=== PATIENT | male | born 1930 | race Caucasian/White ===

== ENCOUNTER → 2018-02-01 | Outpatient (CLI) | payer MEDICARE, OTHER ==
[~2018-02-01] MED LIST: CHOL200024 PO; GLUC1CAP13 PO; MULT-717 PO; OMEG1CAP39 PO; TRIA10.8 NS; UBID1CAP43 PO; VITA400C43 PO
[2018-02-01 10:56] LABS: CULTURE INDICATED? NO; MICROSCOPIC NOT IND
[2018-02-01 10:57] LABS: BASOPHILS # (AUTO) 0.04 x10^3/uL (0-0.1); BASOPHILS % (AUTO) 1 % (0-1); EOSINOPHILS # (AUTO) 0.31 x10^3/uL (0-0.4); EOSINOPHILS % (AUTO) 6 % (1-7); LYMPHOCYTES # (AUTO) 1.37 x10^3/uL (1-3.4); LYMPHOCYTES % (AUTO) 26 % (22-44); MD NO; MEAN CORPUSCULAR HEMOGLOBIN 33.8 pg (27.5-34.5); MEAN CORPUSCULAR VOLUME 99.5 fL (81-97); MEAN PLATELET VOLUME 8.1 fL (7.4-10.4); MONOCYTES # (AUTO) 0.42 x10^3/uL (0.2-0.8); MONOCYTES % (AUTO) 8 % (2-9); NEUTROPHILS # (AUTO) 3.18 x10^3/uL (1.8-6.8); NEUTROPHILS % (AUTO) 60 % (42-75); PLATELET COUNT 224 x10^3/uL (130-400); RED BLOOD COUNT 4.74 x10^6/uL (4.38-5.82)
[2018-02-01 11:05] LABS: ANION GAP 4 mmol/L (5-15); CALCIUM 8.7 mg/dL (8.5-10.1); CHLORIDE 108 mmol/L (98-107); CREATININE 1.13 mg/dL (0.7-1.3)
== END | disposition home or self-care (01) ==
LOC: STAR 09:43
PROVIDERS: ATTEND Orthopaedic Surgery
DX: M17.11 Unilateral primary osteoarthritis, right knee (principal)
CPT/HCPCS: 36415; 80048; 81003; 85025; 87081; 93005

== ENCOUNTER 2018-02-05 06:34 | Inpatient (IN) | payer MEDICARE, OTHER ==
[~2018-02-05] VITALS: Ht 182.9 cm; Wt 84.8 kg
[2018-02-05] MEDS ORDERED: GABAPENTIN 300 MG CAPSULE PO ONE (07:30)
[2018-02-05] MEDS ORDERED: ONDANSETRON ODT 8 MG PO ONE (07:30)
[2018-02-05] MEDS ORDERED: ACETAMINOPHEN 500 MG TABLET PO ONE (07:30)
[2018-02-05] MEDS ORDERED: OXYcodone IR 5MG TABLET PO ONE (07:30)
[2018-02-05 07:32] VITALS: BP 141/91
[2018-02-05] MEDS: LACTATED RINGERS 1,000 ML IV SCH ×3 (07:54→13:20)
[2018-02-05] MEDS ORDERED: CEFAZOLIN 1,000 MG ONE ×3 (08:53→12:20)
[2018-02-05] MEDS ORDERED: PHENYLEPHRINE 10 MG/ML ONE ×2 (08:53→11:10)
[2018-02-05] MEDS ORDERED: FENTANYL PF 250 MCG/5ML ONE ×2 (08:53→12:14)
[2018-02-05] MEDS ORDERED: PROPOFOL 10 MG/ML, 20ML ONE (08:53)
[2018-02-05] MEDS ORDERED: SUCCINYLCHOLINE 20 MG/ML, 10ML ONE (08:53)
[2018-02-05] MEDS ORDERED: EPHEDRINE 50 MG/ML, 1ML ONE (08:54)
[2018-02-05] MEDS ORDERED: TRANEXAMIC ACID 100 MG/ML, 10ML ONE (09:03)
[2018-02-05] MEDS ORDERED: VANCOMYCIN 1,000 MG ONE (09:03)
[2018-02-05] MEDS ORDERED: EPINEPHRINE 1 MG/ML, 1ML ONE (09:03)
[2018-02-05] MEDS ORDERED: SODIUM CHLORIDE 0.9% 100 ML ONE (09:03)
[2018-02-05] MEDS ORDERED: KETOROLAC 60 MG/2 ML ONE (09:03)
[2018-02-05] MEDS ORDERED: ROPIvacaine/PF 0.2%, 20 ML ONE (09:03)
[2018-02-05] MEDS ORDERED: VANCOMYCIN PER PHARMACY MC STA (09:16)
[2018-02-05] MEDS ORDERED: VANCOMYCIN 1,500 MG in SODIUM CHLORIDE 0.9% 250 ML IV ONE (10:00)
[2018-02-05] MEDS ORDERED: FENTANYL PF 100 MCG/2ML IV PRN (11:00)
[2018-02-05] MEDS ORDERED: HYDROmorphone 1 MG/ML, 1ML IV PRN ×2 (11:00→11:30)
[2018-02-05] MEDS ORDERED: MEPERIDINE/PF 25MG/0.5ML IVPush PRN (11:00)
[2018-02-05] MEDS ORDERED: PROMETHAZINE 25 MG/ML, 1ML IV PRN (11:00)
[2018-02-05] MEDS ORDERED: OXYcodone 5 MG/5 ML ORAL.SOL UDC PO PRN (11:00)
[2018-02-05] MEDS ORDERED: GLYCOPYRROLATE 0.2MG/1ML, 5ML ONE (11:08)
[2018-02-05] MEDS ORDERED: ONDANSETRON 2MG/ML, 2ML ONE (11:09)
[2018-02-05] MEDS ORDERED: ONDANSETRON 4 MG TABLET PO PRN (11:30)
[2018-02-05] MEDS ORDERED: MAGNESIUM HYDROXIDE 8%, 30ML UDC PO PRN (11:30)
[2018-02-05] MEDS ORDERED: ZOLPIDEM 5MG TABLET PO PRN (11:30)
[2018-02-05] MEDS: D5%-0.45% NACL 1,000 ML IV SCH ×2 (11:30→20:50)
[2018-02-05] MEDS ORDERED: ALUMINUM/MAG/SIMETHICONE 30 ML UDC PO PRN (11:30)
[2018-02-05] MEDS ORDERED: TRANEXAMIC ACID 1,000 MG in SODIUM CHLORIDE 0.9% 100 ML IVPB ONE (11:30)
[2018-02-05] MEDS ORDERED: OXYcodone IR 5MG TABLET PO PRN (11:30)
[2018-02-05] MEDS ORDERED: DIPHENHYDRAMINE 25 MG CAPSULE PO PRN (11:30)
[2018-02-05] MEDS ORDERED: BISACODYL 10 MG SUPP PR PRN (11:30)
[2018-02-05] MEDS ORDERED: ONDANSETRON 2MG/ML, 2ML IV PRN (11:30)
[2018-02-05] MEDS ORDERED: DIAZEPAM 5 MG TABLET PO PRN (11:30)
[2018-02-05] MEDS: TAMSULOSIN 0.4 MG CAP.ER.24H PO SCH (11:30)
[2018-02-05] MEDS ORDERED: PROMETHAZINE 12.5 MG SUPP PR PRN (11:30)
[2018-02-05] MEDS ORDERED: PROMETHAZINE 25 MG/ML, 1ML IM PRN (11:30)
[2018-02-05] MEDS ORDERED: SENNA/DOCUSATE TABLET PO PRN (11:30)
[2018-02-05] MEDS: ACETAMINOPHEN 650 MG/20.3 ML UDC PO SCH ×2 (11:30→19:43)
[2018-02-05 13:17] VITALS: BP 131/81
[2018-02-05] MEDS: CEFAZOLIN PMX 1GM/50ML 50 ML IVPB SCH ×2 (16:43→23:58)
[2018-02-05] MEDS: ASPIRIN 81 MG TABLET EC PO SCH (18:25)
[2018-02-05] MEDS: DOCUSATE 100 MG CAPSULE PO SCH (19:43)
[2018-02-05 19:57] VITALS: BP 123/69
[2018-02-05] MEDS ORDERED: TAMSULOSIN 0.4 MG CAP.ER.24H PO ONE (20:00)
[2018-02-05] MEDS ORDERED: FLUTICASONE NASAL SPRAY 16GM NAS SCH (21:00)
[2018-02-06 00:09] VITALS: BP 89/49
[2018-02-06] MEDS: ACETAMINOPHEN 650 MG/20.3 ML UDC PO SCH ×2 (03:54→11:24)
[2018-02-06 04:11] VITALS: BP 103/56
[2018-02-06] MEDS: ASPIRIN 81 MG TABLET EC PO SCH (05:38)
[2018-02-06] MEDS ORDERED: DEXAMETHASONE 4 MG/ML, 1ML IVPush SCH (06:00)
[2018-02-06 07:05] VITALS: BP 114/72
[2018-02-06] MEDS: DOCUSATE 100 MG CAPSULE PO SCH (07:21)
[2018-02-06] MEDS: D5%-0.45% NACL 1,000 ML IV SCH (07:21)
[2018-02-06] MEDS: TAMSULOSIN 0.4 MG CAP.ER.24H PO SCH (07:21)
[2018-02-06 12:45] VITALS: BP 97/54
[2018-02-06] MEDS ORDERED: KETOROLAC 30 MG/1 ML IV SCH (17:00)
== END 2018-02-06 16:35 | disposition home or self-care (01) | DRG 470 ==
LOC: OUT 06:34 → ORIP 11:30 → 4NOR 12:50 → DCLOUNGE 02-06 16:28
PROVIDERS: ADMIT Orthopaedic Surgery; ATTEND Orthopaedic Surgery
PROC: 0SRC0J9 Replacement of Right Knee Joint with Synthetic Substitute, Cemented, Open Approach (ICD-10-PCS; principal; 2018-02-05 09:45)
DX: M17.11 Unilateral primary osteoarthritis, right knee (principal); R33.9 Retention of urine, unspecified
CPT/HCPCS: 36415; 85018; 93005; C1713; J0171; J0690; J1100; J1885; J2405; J2704; J2795; J3010; J3370; J3490; Q0162; C1776; J0330; J2370; J7120

== ENCOUNTER 2019-08-13 18:26 | Inpatient (IN) | payer MEDICARE, OTHER ==
[~2019-08-13] VITALS: Ht 182.9 cm; Wt 73.6 kg
--- NOTE | 2019-08-13 19:03 | NUR ---
THIS IS A 88 YO M SENT FORM PRIMARY CARE FOR INFT IN RT KNEE. PT STATES HE WAS RECENTLY ADMITTED AT [facility] FOR PNA TURNED SEPSIS AND THEY BELIEVE THAT IS WHAT CAUSED THE INFT IN HIS KNEE. PT STATES HE IS TO HAVE SX TOMORROW TO HAVE KNEE REPLACED. ORIGINAL RT KNEE REPLACEMENT WAS ABOUT 1.5 YEARS AGO. PT DENIES CHILLS N/V. RESPIRATIONS ARE EVEN AND UNLABORED. NADN. ED PROVIDER AT BEDSIDE FOR EVAL. CALL LIGHT IN REACH. AWAITING ORDERS.
--- NOTE | 2019-08-13 19:24 | NUR ---
PIV STARTED. LABS AND CULTURES DRAWN.
[2019-08-13 19:45] LABS: BASOPHILS # (AUTO) 0.01 x10^3/uL (0-0.1); BASOPHILS % (AUTO) 0 % (0-1); EOSINOPHILS # (AUTO) 0.33 x10^3/uL (0-0.4); EOSINOPHILS % (AUTO) 4 % (1-7); LYMPHOCYTES % (AUTO) 14 % (22-44); MD NO; MEAN CORPUSCULAR HEMOGLOBIN 32.5 pg (27.5-34.5); MEAN CORPUSCULAR HGB CONC 33.8 g/dL (33.2-36.2); MEAN CORPUSCULAR VOLUME 96.2 fL (81-97); MEAN PLATELET VOLUME 7.2 fL (7.4-10.4); MONOCYTES # (AUTO) 0.64 x10^3/uL (0.2-0.8); MONOCYTES % (AUTO) 8 % (2-9); NEUTROPHILS # (AUTO) 6.32 x10^3/uL (1.8-6.8); NEUTROPHILS % (AUTO) 74 % (42-75); PLATELET COUNT 409 x10^3/uL (130-400); RED BLOOD COUNT 3.17 x10^6/uL (4.38-5.82); RED CELL DISTRIBUTION WIDTH 13.7 % (9.4-14.8)
[2019-08-13 19:55] LABS: ALBUMIN 2.7 g/dL (3.4-5.0); ANION GAP 6 mmol/L (5-15); CALCIUM 8.9 mg/dL (8.5-10.1); CHLORIDE 107 mmol/L (98-107)
--- NOTE | 2019-08-13 20:04 | NUR ---
inquiring about pillows for the pt. pillows found and given to pt. no other wants on needs at this time. pt in bed nadn.
--- NOTE | 2019-08-13 21:00 | NUR ---
REPORT GIVEN TO DORIS CHAVARRIA. PT READY TO BE TRANSFERED TO THE FLOOR.
[2019-08-13] MEDS: SODIUM CHLORIDE 0.9% 1,000 ML IV SCH (21:16)
[2019-08-13] MEDS: TRIAMCINOLONE ACETONIDE NAS SCH (21:30)
[2019-08-13] MEDS ORDERED: ONDANSETRON ODT 4 MG PO PRN (21:30)
[2019-08-13] MEDS ORDERED: BISACODYL 10 MG SUPP PR PRN (21:30)
[2019-08-13] MEDS: OXYcodone IR 5MG TABLET PO PRN (22:51)
[2019-08-13 23:01] VITALS: BP 128/71
[2019-08-14 03:01] VITALS: BP 113/70
[2019-08-14 05:57] LABS: BASOPHILS # (AUTO) 0.03 x10^3/uL (0-0.1); BASOPHILS % (AUTO) 1 % (0-1); EOSINOPHILS # (AUTO) 0.44 x10^3/uL (0-0.4); EOSINOPHILS % (AUTO) 9 % (1-7); LYMPHOCYTES # (AUTO) 1.37 x10^3/uL (1-3.4); LYMPHOCYTES % (AUTO) 27 % (22-44); MD NO; MEAN CORPUSCULAR HEMOGLOBIN 32.7 pg (27.5-34.5); MEAN CORPUSCULAR HGB CONC 33.8 g/dL (33.2-36.2); MEAN CORPUSCULAR VOLUME 96.8 fL (81-97); MEAN PLATELET VOLUME 7.1 fL (7.4-10.4); MONOCYTES # (AUTO) 0.55 x10^3/uL (0.2-0.8); MONOCYTES % (AUTO) 11 % (2-9); NEUTROPHILS # (AUTO) 2.71 x10^3/uL (1.8-6.8); NEUTROPHILS % (AUTO) 53 % (42-75); PLATELET COUNT 361 x10^3/uL (130-400); RED BLOOD COUNT 2.77 x10^6/uL (4.38-5.82); RED CELL DISTRIBUTION WIDTH 14.1 % (9.4-14.8)
[2019-08-14 06:04] LABS: ALANINE AMINOTRANSFERASE 18 U/L (12-78); ALBUMIN 2.2 g/dL (3.4-5.0); ANION GAP 6 mmol/L (5-15); CALCIUM 8.1 mg/dL (8.5-10.1); CHLORIDE 110 mmol/L (98-107)
[2019-08-14 06:07] LABS: ALKALINE PHOSPHATASE 60 U/L (45-117); BILIRUBIN,TOTAL 0.5 mg/dL (0.2-1.0); CREATININE 1.33 mg/dL (0.7-1.3); TOTAL PROTEIN 6.2 g/dL (6.4-8.2)
[2019-08-14 07:19] VITALS: BP 110/67
[2019-08-14] MEDS: SODIUM CHLORIDE 0.9% 1,000 ML IV SCH ×2 (09:16→23:56)
[2019-08-14] MEDS: CHOLECALCIFEROL 1,000 UNIT TABLET PO SCH (09:21)
[2019-08-14] MEDS: TEMPLATE NON-FORMULARY MED. (Gluc Su/Msm/Magnesium/Vit C** (Glucosamine Complex-Msm Cap**) HOMEMEDPO SCH (09:22)
[2019-08-14] MEDS: OXYcodone IR 5MG TABLET PO PRN (09:26)
[2019-08-14 14:19] VITALS: BP 105/64
[2019-08-14] MEDS ORDERED: EPINEPHRINE 1 MG/ML, 1ML ONE (14:28)
[2019-08-14] MEDS ORDERED: ROPIvacaine/PF 0.2%, 20 ML ONE (14:28)
[2019-08-14 14:49] LABS: HCT (SEDRATE) 30.2 % (39.2-51.8)
[2019-08-14 15:05] LABS: C-REACTIVE PROTEIN, QUANT 4.6 mg/dL (0.02-0.49)
[2019-08-14] MEDS ORDERED: MIDAZOLAM 1 MG/ML, 2ML ONE (17:17)
[2019-08-14] MEDS ORDERED: FENTANYL PF 250 MCG/5ML ONE (17:18)
[2019-08-14] MEDS ORDERED: TRANEXAMIC ACID 100 MG/ML, 10ML ONE (18:11)
[2019-08-14] MEDS ORDERED: PHENYLEPHRINE 10 MG/ML ONE (18:11)
[2019-08-14] MEDS ORDERED: MIDAZOLAM 1 MG/ML, 2ML IV PRN (19:00)
[2019-08-14] MEDS ORDERED: MEROPENEM 1 GM in SODIUM CHLORIDE 0.9% 100 ML IV ONE (19:00)
[2019-08-14] MEDS ORDERED: METOPROLOL 1 MG/ML, 5ML IV PRN (19:00)
[2019-08-14] MEDS ORDERED: PROMETHAZINE 25 MG/ML, 1ML IV PRN (19:00)
[2019-08-14] MEDS ORDERED: MEPERIDINE/PF 25MG/ML,1ML IVPush PRN (19:00)
[2019-08-14] MEDS ORDERED: OXYcodone 5 MG/5 ML ORAL.SOL UDC PO PRN (19:00)
[2019-08-14] MEDS ORDERED: hydrALAzine 20 MG/ML, 1ML IV PRN (19:00)
[2019-08-14] MEDS ORDERED: ALBUTEROL/IPRATROPIUM 2.5MG/0.5MG, 3 ML NPPB PRN (19:00)
[2019-08-14] MEDS ORDERED: ACETAMINOPHEN 325 MG TABLET PO PRN (19:00)
[2019-08-14] MEDS ORDERED: HYDROmorphone 2 MG/ML, 1ML IVPush PRN (19:00)
[2019-08-14] MEDS ORDERED: VANCOMYCIN 1,000 MG ONE (19:55)
[2019-08-14] MEDS ORDERED: PROPOFOL 10 MG/ML, 20ML ONE (20:48)
[2019-08-14] MEDS ORDERED: DEXAMETHASONE 4 MG/ML, 1ML ONE (20:48)
[2019-08-14] MEDS ORDERED: ROCURONIUM 10MG/ML,5ML ONE (20:48)
[2019-08-14] MEDS ORDERED: ONDANSETRON 2MG/ML, 2ML ONE (20:48)
[2019-08-14] MEDS ORDERED: GLYCOPYRROLATE 0.2MG/1ML, 5ML ONE (20:48)
[2019-08-14] MEDS ORDERED: NEOSTIGMINE 1 MG/ML, 10ML ONE (20:48)
[2019-08-14] MEDS ORDERED: FENTANYL PF 100 MCG/2ML ONE ×2 (20:57→21:17)
[2019-08-14] MEDS: TRIAMCINOLONE ACETONIDE NAS SCH (21:00)
[2019-08-14] MEDS ORDERED: OXYcodone 5 MG/5 ML ORAL.SOL UDC ONE (21:17)
[2019-08-14] MEDS: FENTANYL PF 100 MCG/2ML IV PRN ×2 (21:20→21:29)
[2019-08-15] MEDS: MEROPENEM 1 GM in SODIUM CHLORIDE 0.9% 100 ML IV SCH ×3 (00:39→16:56)
[2019-08-15] MEDS: OXYcodone IR 5MG TABLET PO PRN ×4 (00:39→21:43)
[2019-08-15 01:13] VITALS: BP 110/69
[2019-08-15 03:48] VITALS: BP 118/71
[2019-08-15 06:13] LABS: CHLORIDE 110 mmol/L (98-107)
[2019-08-15 06:22] LABS: ALANINE AMINOTRANSFERASE 17 U/L (12-78); ALBUMIN 2.1 g/dL (3.4-5.0); ALKALINE PHOSPHATASE 51 U/L (45-117); ANION GAP 7 mmol/L (5-15); BILIRUBIN,TOTAL 0.6 mg/dL (0.2-1.0); CALCIUM 8.2 mg/dL (8.5-10.1); CREATININE 1.11 mg/dL (0.7-1.3); TOTAL PROTEIN 5.9 g/dL (6.4-8.2)
[2019-08-15 06:49] LABS: BASOPHILS % (AUTO) 0 % (0-1); EOSINOPHILS % (AUTO) 0 % (1-7); LYMPHOCYTES # (AUTO) 0.58 x10^3/uL (1-3.4); LYMPHOCYTES % (AUTO) 7 % (22-44); MD NO; MEAN CORPUSCULAR HGB CONC 33.9 g/dL (33.2-36.2); MEAN CORPUSCULAR VOLUME 97.3 fL (81-97); MEAN PLATELET VOLUME 7.2 fL (7.4-10.4); MONOCYTES # (AUTO) 0.42 x10^3/uL (0.2-0.8); MONOCYTES % (AUTO) 5 % (2-9); NEUTROPHILS # (AUTO) 7.42 x10^3/uL (1.8-6.8); NEUTROPHILS % (AUTO) 88 % (42-75); PLATELET COUNT 368 x10^3/uL (130-400); RED BLOOD COUNT 2.61 x10^6/uL (4.38-5.82); RED CELL DISTRIBUTION WIDTH 14.4 % (9.4-14.8)
[2019-08-15 07:20] VITALS: BP 105/58
[2019-08-15] MEDS: SODIUM CHLORIDE 0.9% 1,000 ML IV SCH ×2 (07:55→21:16)
[2019-08-15] MEDS: CHOLECALCIFEROL 1,000 UNIT TABLET PO SCH (07:55)
[2019-08-15] MEDS: ASPIRIN 81 MG TABLET CHEW PO SCH ×2 (07:55→21:39)
[2019-08-15] MEDS: TEMPLATE NON-FORMULARY MED. (Gluc Su/Msm/Magnesium/Vit C** (Glucosamine Complex-Msm Cap**) HOMEMEDPO SCH (07:56)
[2019-08-15 13:08] VITALS: BP 100/54
[2019-08-15 17:52] LABS: ANION GAP 8 mmol/L (5-15); CALCIUM 8.5 mg/dL (8.5-10.1); CHLORIDE 108 mmol/L (98-107); CREATININE 1.38 mg/dL (0.7-1.3)
[2019-08-15 19:07] VITALS: BP 111/68
[2019-08-15] MEDS: TRIAMCINOLONE ACETONIDE NAS SCH (21:00)
[2019-08-16 00:12] VITALS: BP 101/63
[2019-08-16] MEDS: MEROPENEM 1 GM in SODIUM CHLORIDE 0.9% 100 ML IV SCH ×3 (00:54→16:33)
[2019-08-16 05:06] VITALS: BP 100/59
[2019-08-16] MEDS: OXYcodone IR 5MG TABLET PO PRN ×3 (05:25→21:53)
[2019-08-16] MEDS: ACETAMINOPHEN 325 MG TABLET PO PRN ×2 (05:25→21:52)
[2019-08-16] MEDS: CHOLECALCIFEROL 1,000 UNIT TABLET PO SCH (08:14)
[2019-08-16] MEDS: ASPIRIN 81 MG TABLET CHEW PO SCH ×2 (08:14→21:53)
[2019-08-16] MEDS: SODIUM CHLORIDE 0.9% 1,000 ML IV SCH ×2 (08:14→17:16)
[2019-08-16] MEDS: TEMPLATE NON-FORMULARY MED. (Gluc Su/Msm/Magnesium/Vit C** (Glucosamine Complex-Msm Cap**) HOMEMEDPO SCH (08:17)
[2019-08-16 08:46] LABS: BASOPHILS # (AUTO) 0.01 x10^3/uL (0-0.1); BASOPHILS % (AUTO) 0 % (0-1); EOSINOPHILS # (AUTO) 0.06 x10^3/uL (0-0.4); EOSINOPHILS % (AUTO) 1 % (1-7); LYMPHOCYTES % (AUTO) 15 % (22-44); MD NO; MEAN CORPUSCULAR HEMOGLOBIN 32.9 pg (27.5-34.5); MEAN CORPUSCULAR HGB CONC 33.5 g/dL (33.2-36.2); MEAN CORPUSCULAR VOLUME 98.4 fL (81-97); MEAN PLATELET VOLUME 6.6 fL (7.4-10.4); MONOCYTES # (AUTO) 0.99 x10^3/uL (0.2-0.8); MONOCYTES % (AUTO) 12 % (2-9); NEUTROPHILS # (AUTO) 6.25 x10^3/uL (1.8-6.8); NEUTROPHILS % (AUTO) 73 % (42-75); PLATELET COUNT 357 x10^3/uL (130-400); RED BLOOD COUNT 2.43 x10^6/uL (4.38-5.82); RED CELL DISTRIBUTION WIDTH 14.4 % (9.4-14.8)
[2019-08-16 08:56] LABS: ALBUMIN 2.1 g/dL (3.4-5.0); ANION GAP 7 mmol/L (5-15); CALCIUM 8.1 mg/dL (8.5-10.1); CHLORIDE 107 mmol/L (98-107)
[2019-08-16 09:00] LABS: ALANINE AMINOTRANSFERASE 12 U/L (12-78); ALKALINE PHOSPHATASE 55 U/L (45-117); BILIRUBIN,TOTAL 0.5 mg/dL (0.2-1.0)
[2019-08-16 09:09] VITALS: BP 104/63
[2019-08-16 12:59] VITALS: BP 118/70
[2019-08-16 20:06] VITALS: BP 97/61
[2019-08-16] MEDS: TRIAMCINOLONE ACETONIDE NAS SCH (21:00)
[2019-08-17] MEDS: MEROPENEM 1 GM in SODIUM CHLORIDE 0.9% 100 ML IV SCH ×3 (00:50→15:55)
[2019-08-17] MEDS: SODIUM CHLORIDE 0.9% 1,000 ML IV SCH ×2 (03:16→15:55)
[2019-08-17 03:59] VITALS: BP 120/77
[2019-08-17] MEDS: OXYcodone IR 5MG TABLET PO PRN ×2 (07:50→15:54)
[2019-08-17] MEDS: CHOLECALCIFEROL 1,000 UNIT TABLET PO SCH (07:50)
[2019-08-17] MEDS: ASPIRIN 81 MG TABLET CHEW PO SCH ×2 (07:50→21:21)
[2019-08-17] MEDS: TEMPLATE NON-FORMULARY MED. (Gluc Su/Msm/Magnesium/Vit C** (Glucosamine Complex-Msm Cap**) HOMEMEDPO SCH (07:51)
[2019-08-17 08:15] VITALS: BP 127/87
[2019-08-17 14:20] VITALS: BP 118/64
[2019-08-17] MEDS: TRIAMCINOLONE ACETONIDE NAS SCH (21:00)
[2019-08-17 21:07] VITALS: BP 102/67
[2019-08-17] MEDS: SENNA/DOCUSATE TABLET PO SCH (21:21)
[2019-08-18] MEDS: MEROPENEM 1 GM in SODIUM CHLORIDE 0.9% 100 ML IV SCH ×3 (00:09→16:41)
[2019-08-18 00:49] VITALS: BP 116/74
[2019-08-18] MEDS: SODIUM CHLORIDE 0.9% 1,000 ML IV SCH ×3 (02:11→22:00)
[2019-08-18 06:38] VITALS: BP 114/70
[2019-08-18] MEDS: OXYcodone IR 5MG TABLET PO PRN (07:01)
[2019-08-18] MEDS: CHOLECALCIFEROL 1,000 UNIT TABLET PO SCH (08:16)
[2019-08-18] MEDS: TEMPLATE NON-FORMULARY MED. (Gluc Su/Msm/Magnesium/Vit C** (Glucosamine Complex-Msm Cap**) HOMEMEDPO SCH (08:16)
[2019-08-18] MEDS: ASPIRIN 81 MG TABLET CHEW PO SCH ×2 (08:16→20:18)
[2019-08-18 10:59] LABS: BASOPHILS # (AUTO) 0.06 x10^3/uL (0-0.1); BASOPHILS % (AUTO) 1 % (0-1); EOSINOPHILS # (AUTO) 0.19 x10^3/uL (0-0.4); EOSINOPHILS % (AUTO) 3 % (1-7); LYMPHOCYTES % (AUTO) 18 % (22-44); MD NO; MEAN CORPUSCULAR HEMOGLOBIN 33.1 pg (27.5-34.5); MEAN CORPUSCULAR HGB CONC 34.5 g/dL (33.2-36.2); MONOCYTES # (AUTO) 0.63 x10^3/uL (0.2-0.8); MONOCYTES % (AUTO) 9 % (2-9); NEUTROPHILS % (AUTO) 69 % (42-75); PLATELET COUNT 318 x10^3/uL (130-400); RED CELL DISTRIBUTION WIDTH 14.4 % (9.4-14.8)
[2019-08-18] MEDS: SENNA/DOCUSATE TABLET PO SCH (11:37)
[2019-08-18 13:13] VITALS: BP 98/60
[2019-08-18 19:49] VITALS: BP 117/71
[2019-08-18] MEDS: TRIAMCINOLONE ACETONIDE NAS SCH (21:00)
[2019-08-19] MEDS: MEROPENEM 1 GM in SODIUM CHLORIDE 0.9% 100 ML IV SCH ×3 (00:57→16:07)
[2019-08-19 01:46] VITALS: BP 113/71
[2019-08-19 06:50] LABS: BASOPHILS # (AUTO) 0.03 x10^3/uL (0-0.1); BASOPHILS % (AUTO) 0 % (0-1); EOSINOPHILS # (AUTO) 0.22 x10^3/uL (0-0.4); EOSINOPHILS % (AUTO) 3 % (1-7); LYMPHOCYTES # (AUTO) 1.19 x10^3/uL (1-3.4); LYMPHOCYTES % (AUTO) 17 % (22-44); MD NO; MEAN CORPUSCULAR HGB CONC 34.1 g/dL (33.2-36.2); MEAN CORPUSCULAR VOLUME 96.8 fL (81-97); MEAN PLATELET VOLUME 7.1 fL (7.4-10.4); MONOCYTES # (AUTO) 0.57 x10^3/uL (0.2-0.8); MONOCYTES % (AUTO) 8 % (2-9); NEUTROPHILS # (AUTO) 5.06 x10^3/uL (1.8-6.8); NEUTROPHILS % (AUTO) 72 % (42-75); PLATELET COUNT 369 x10^3/uL (130-400)
[2019-08-19 06:59] LABS: ALBUMIN 1.9 g/dL (3.4-5.0); ANION GAP 5 mmol/L (5-15); CALCIUM 8.3 mg/dL (8.5-10.1); CHLORIDE 107 mmol/L (98-107)
[2019-08-19 07:08] LABS: ALANINE AMINOTRANSFERASE 32 U/L (12-78); ALKALINE PHOSPHATASE 51 U/L (45-117); BILIRUBIN,TOTAL 0.7 mg/dL (0.2-1.0); CREATININE 0.91 mg/dL (0.7-1.3); TOTAL PROTEIN 5.8 g/dL (6.4-8.2)
[2019-08-19 07:24] LABS: SEDIMENTATION RATE > 120 mm/hr (0-10)
[2019-08-19 07:26] VITALS: BP 111/69
[2019-08-19] MEDS: SODIUM CHLORIDE 0.9% 1,000 ML IV SCH ×2 (08:00→17:55)
[2019-08-19] MEDS: CHOLECALCIFEROL 1,000 UNIT TABLET PO SCH (08:09)
[2019-08-19] MEDS: SENNA/DOCUSATE TABLET PO SCH (08:09)
[2019-08-19] MEDS: ASPIRIN 81 MG TABLET CHEW PO SCH ×2 (08:09→19:53)
[2019-08-19] MEDS: TEMPLATE NON-FORMULARY MED. (Gluc Su/Msm/Magnesium/Vit C** (Glucosamine Complex-Msm Cap**) HOMEMEDPO SCH (08:10)
[2019-08-19 08:23] LABS: HCT (SEDRATE) 23.2 % (39.2-51.8)
[2019-08-19 12:45] VITALS: BP 124/76
[2019-08-19] MEDS: OXYcodone IR 5MG TABLET PO PRN ×2 (16:08→19:53)
[2019-08-19 19:55] VITALS: BP 118/67
[2019-08-19] MEDS: TRIAMCINOLONE ACETONIDE NAS SCH (21:00)
[2019-08-20] MEDS: MEROPENEM 1 GM in SODIUM CHLORIDE 0.9% 100 ML IV SCH ×3 (00:06→16:32)
[2019-08-20 01:17] VITALS: BP 131/81
[2019-08-20] MEDS: SODIUM CHLORIDE 0.9% 1,000 ML IV SCH ×2 (04:00→14:00)
[2019-08-20 07:20] VITALS: BP 111/70
[2019-08-20] MEDS: CHOLECALCIFEROL 1,000 UNIT TABLET PO SCH (08:33)
[2019-08-20] MEDS: ASPIRIN 81 MG TABLET CHEW PO SCH ×2 (08:33→19:40)
[2019-08-20] MEDS: SENNA/DOCUSATE TABLET PO SCH (08:33)
[2019-08-20] MEDS: TEMPLATE NON-FORMULARY MED. (Gluc Su/Msm/Magnesium/Vit C** (Glucosamine Complex-Msm Cap**) HOMEMEDPO SCH (08:50)
[2019-08-20 13:55] VITALS: BP 128/74
[2019-08-20 18:57] VITALS: BP 112/66
[2019-08-20] MEDS: ACETAMINOPHEN 325 MG TABLET PO PRN (19:40)
[2019-08-20] MEDS: TRIAMCINOLONE ACETONIDE NAS SCH (19:40)
[2019-08-20] MEDS: OXYcodone IR 5MG TABLET PO PRN (19:41)
[2019-08-21] MEDS: MEROPENEM 1 GM in SODIUM CHLORIDE 0.9% 100 ML IV SCH ×4 (00:13→23:50)
[2019-08-21 00:16] VITALS: BP 110/69
[2019-08-21] MEDS: SODIUM CHLORIDE 0.9% 1,000 ML IV SCH ×3 (01:03→20:00)
[2019-08-21 07:04] VITALS: BP 107/66
[2019-08-21] MEDS: CHOLECALCIFEROL 1,000 UNIT TABLET PO SCH (08:14)
[2019-08-21] MEDS: ASPIRIN 81 MG TABLET CHEW PO SCH ×2 (08:14→21:30)
[2019-08-21] MEDS: SENNA/DOCUSATE TABLET PO SCH (08:14)
[2019-08-21] MEDS: TEMPLATE NON-FORMULARY MED. (Gluc Su/Msm/Magnesium/Vit C** (Glucosamine Complex-Msm Cap**) HOMEMEDPO SCH (08:14)
[2019-08-21 13:21] VITALS: BP 98/62
[2019-08-21] MEDS: ACETAMINOPHEN 325 MG TABLET PO PRN (18:12)
[2019-08-21] MEDS: OXYcodone IR 5MG TABLET PO PRN (18:12)
[2019-08-21 19:03] VITALS: BP 95/56
[2019-08-21] MEDS: TRIAMCINOLONE ACETONIDE NAS SCH (21:00)
[2019-08-22 00:55] VITALS: BP 116/67
[2019-08-22] MEDS: SODIUM CHLORIDE 0.9% 1,000 ML IV SCH (06:00)
[2019-08-22 07:15] VITALS: BP 114/70
[2019-08-22] MEDS: MEROPENEM 1 GM in SODIUM CHLORIDE 0.9% 100 ML IV SCH (08:23)
[2019-08-22] MEDS: ASPIRIN 81 MG TABLET CHEW PO SCH (08:23)
[2019-08-22] MEDS: CHOLECALCIFEROL 1,000 UNIT TABLET PO SCH (08:23)
[2019-08-22] MEDS: SENNA/DOCUSATE TABLET PO SCH (08:23)
[2019-08-22] MEDS: TEMPLATE NON-FORMULARY MED. (Gluc Su/Msm/Magnesium/Vit C** (Glucosamine Complex-Msm Cap**) HOMEMEDPO SCH (08:25)
[2019-08-22 10:05] LABS: BASOPHILS # (AUTO) 0.04 x10^3/uL (0-0.1); BASOPHILS % (AUTO) 1 % (0-1); EOSINOPHILS # (AUTO) 0.41 x10^3/uL (0-0.4); EOSINOPHILS % (AUTO) 7 % (1-7); LYMPHOCYTES % (AUTO) 20 % (22-44); MD NO; MEAN CORPUSCULAR HEMOGLOBIN 32.7 pg (27.5-34.5); MEAN CORPUSCULAR HGB CONC 33.7 g/dL (33.2-36.2); MEAN CORPUSCULAR VOLUME 97.1 fL (81-97); MEAN PLATELET VOLUME 6.6 fL (7.4-10.4); MONOCYTES # (AUTO) 0.58 x10^3/uL (0.2-0.8); MONOCYTES % (AUTO) 10 % (2-9); NEUTROPHILS % (AUTO) 63 % (42-75); PLATELET COUNT 486 x10^3/uL (130-400); RED BLOOD COUNT 3.06 x10^6/uL (4.38-5.82)
[2019-08-22 10:09] LABS: ANION GAP 6 mmol/L (5-15); CALCIUM 8.4 mg/dL (8.5-10.1); CHLORIDE 107 mmol/L (98-107); CREATININE 1.05 mg/dL (0.7-1.3)
[2019-08-22] MEDS ORDERED: ASPI-515 PO (13:07)
== END 2019-08-22 14:10 | DRG 466 ==
LOC: ED 20:05 → EDIP 20:32 → 4NE 21:49
PROVIDERS: ADMIT Family Medicine; ATTEND Internal Medicine
PROC: 0SRC0J9 Replacement of Right Knee Joint with Synthetic Substitute, Cemented, Open Approach (ICD-10-PCS; 2019-08-14)
PROC: 3E0T3BZ Introduction of Anesthetic Agent into Peripheral Nerves and Plexi, Percutaneous Approach (ICD-10-PCS; 2019-08-14)
PROC: 0SPC0JZ Removal of Synthetic Substitute from Right Knee Joint, Open Approach (ICD-10-PCS; principal; 2019-08-14 17:15)
PROC: 02HV33Z Insertion of Infusion Device into Superior Vena Cava, Percutaneous Approach (ICD-10-PCS; 2019-08-15)
PROC: B5181ZA Fluoroscopy of Superior Vena Cava using Low Osmolar Contrast, Guidance (ICD-10-PCS; 2019-08-15)
PROC: B548ZZA Ultrasonography of Superior Vena Cava, Guidance (ICD-10-PCS; 2019-08-15)
DX: T84.53XA Infection and inflammatory reaction due to internal right knee prosthesis, initial encounter (principal); N17.0 Acute kidney failure with tubular necrosis; E44.0 Moderate protein-calorie malnutrition; Z85.46 Personal history of malignant neoplasm of prostate; D64.9 Anemia, unspecified; C61 Malignant neoplasm of prostate; Z96.649 Presence of unspecified artificial hip joint; Y83.8 Other surgical procedures as the cause of abnormal reaction of the patient, or of later complication, without mention of misadventure at the time of the procedure; M16.12 Unilateral primary osteoarthritis, left hip; Z79.82 Long term (current) use of aspirin; Z87.01 Personal history of pneumonia (recurrent); Z85.820 Personal history of malignant melanoma of skin; Z90.89 Acquired absence of other organs; Y92.098 Other place in other non-institutional residence as the place of occurrence of the external cause; Z68.22 Body mass index [BMI] 22.0-22.9, adult
CPT/HCPCS: 36415; 36573; 71045; 71250; 80048; 80053; 82040; 82378; 82607; 83605; 83735; 84100; 84145; 85014; 85018; 85025; 85651; 86140; 86480; 86850; 86900; 86923; 87040; 87070; 87075; 87176; 87205; 87491; 87591; 93005; 99285; C1713; G0378; J0171; J1100; J2185; J2250; J2405; J2704; J2710; J2795; J3010; J3370; C1751; C1776; J2370; J7030

== ENCOUNTER → 2019-10-09 | Outpatient (CLI) | payer MEDICARE, OTHER ==
[~2019-10-09] MED LIST changes: +ASPI-515 PO
== END | disposition home or self-care (01) ==
LOC: CARD 12:33
PROVIDERS: ATTEND Internal Medicine
DX: R06.02 Shortness of breath (principal); R91.8 Other nonspecific abnormal finding of lung field; Z85.46 Personal history of malignant neoplasm of prostate
CPT/HCPCS: 94060; 94618; 94726; 94729

== ENCOUNTER 2019-12-11 05:42 | Observation (INO) | payer MEDICARE, OTHER ==
[2019-12-09 12:20] LABS: BASOPHILS # (AUTO) 0.02 x10^3/uL (0-0.1); BASOPHILS % (AUTO) 0 % (0-1); EOSINOPHILS # (AUTO) 0.27 x10^3/uL (0-0.4); EOSINOPHILS % (AUTO) 4 % (1-7); LYMPHOCYTES # (AUTO) 1.74 x10^3/uL (1-3.4); LYMPHOCYTES % (AUTO) 25 % (22-44); MD NO; MEAN CORPUSCULAR HEMOGLOBIN 32.3 pg (27.5-34.5); MEAN CORPUSCULAR HGB CONC 33.7 g/dL (33.2-36.2); MEAN CORPUSCULAR VOLUME 95.8 fL (81-97); MEAN PLATELET VOLUME 8.4 fL (7.4-10.4); MONOCYTES # (AUTO) 0.57 x10^3/uL (0.2-0.8); MONOCYTES % (AUTO) 8 % (2-9); NEUTROPHILS # (AUTO) 4.38 x10^3/uL (1.8-6.8); NEUTROPHILS % (AUTO) 63 % (42-75); PLATELET COUNT 250 x10^3/uL (130-400); RED BLOOD COUNT 4.46 x10^6/uL (4.38-5.82); RED CELL DISTRIBUTION WIDTH 14.5 % (9.4-14.8)
[2019-12-09 12:25] LABS: ALANINE AMINOTRANSFERASE 16 U/L (12-78); ALBUMIN 3.6 g/dL (3.4-5.0); ANION GAP 3 mmol/L (5-15); CALCIUM 9.3 mg/dL (8.5-10.1); CHLORIDE 108 mmol/L (98-107)
[2019-12-09 12:27] LABS: ALKALINE PHOSPHATASE 106 U/L (45-117); BILIRUBIN,TOTAL 0.7 mg/dL (0.2-1.0); CREATININE 1.44 mg/dL (0.7-1.3); TOTAL PROTEIN 7.3 g/dL (6.4-8.2)
[2019-12-09 12:40] LABS: MICROSCOPIC NOT IND
[~2019-12-11] VITALS: Ht 182.9 cm; Wt 77.2 kg
[~2019-12-11 05:42] MED LIST changes: +ASPI-496 PO; +DOXY100T PO
[2019-12-11] MEDS ORDERED: LACTATED RINGERS 1,000 ML IV SCH ×2 (06:10→09:11)
[2019-12-11] MEDS ORDERED: ROPIvacaine/PF 0.2%, 20 ML ONE (06:21)
[2019-12-11] MEDS ORDERED: KETOROLAC 60 MG/2 ML ONE (06:21)
[2019-12-11] MEDS ORDERED: VANCOMYCIN 1,000 MG ONE (06:21)
[2019-12-11] MEDS ORDERED: TRANEXAMIC ACID 100 MG/ML, 10ML ONE (06:21)
[2019-12-11] MEDS ORDERED: EPINEPHRINE 1 MG/ML, 1ML ONE (06:22)
[2019-12-11] MEDS ORDERED: SODIUM CHLORIDE 0.9% 50 ML ONE (06:22)
[2019-12-11] MEDS ORDERED: CHLORHEXIDINE 15 ML UDC MM ONE (06:30)
[2019-12-11] MEDS ORDERED: LIDOCAINE-MPF 1%, 2ML INFIL ONE (06:30)
[2019-12-11] MEDS ORDERED: MIDAZOLAM 1 MG/ML, 2ML ONE (06:31)
[2019-12-11] MEDS ORDERED: FENTANYL PF 250 MCG/5ML ONE (06:31)
[2019-12-11] MEDS ORDERED: EPHEDRINE 50 MG/ML, 1ML ONE (06:32)
[2019-12-11] MEDS ORDERED: PROPOFOL 10 MG/ML, 20ML ONE ×2 (06:32)
[2019-12-11] MEDS ORDERED: SUCCINYLCHOLINE 20 MG/ML, 10ML ONE (06:32)
[2019-12-11] MEDS ORDERED: GLYCOPYRROLATE 0.2MG/1ML, 5ML ONE (06:32)
[2019-12-11] MEDS ORDERED: PHENYLEPHRINE 10 MG/ML ONE (06:32)
[2019-12-11] MEDS ORDERED: FAMOTIDINE 20 MG TABLET PO ONE (07:00)
[2019-12-11] MEDS ORDERED: ACETAMINOPHEN 500 MG TABLET PO ONE (07:00)
[2019-12-11] MEDS ORDERED: OXYcodone IR 5MG TABLET PO ONE (07:00)
[2019-12-11] MEDS ORDERED: PROMETHAZINE 25 MG/ML, 1ML IVPush PRN (07:30)
[2019-12-11] MEDS ORDERED: FENTANYL PF 100 MCG/2ML IV PRN (07:30)
[2019-12-11] MEDS ORDERED: OXYcodone 5 MG/5 ML ORAL.SOL UDC PO PRN (07:30)
[2019-12-11] MEDS ORDERED: CEFAZOLIN 1,000 MG ONE ×2 (07:56)
[2019-12-11] MEDS ORDERED: ONDANSETRON 2MG/ML, 2ML ONE (08:26)
[2019-12-11] MEDS ORDERED: MEPERIDINE/PF 50 MG/ML ONE (09:29)
[2019-12-11] MEDS ORDERED: HYDROmorphone 1 MG/ML, 1ML INJ IVPush PRN (09:30)
[2019-12-11] MEDS ORDERED: DEXAMETHASONE 4 MG/ML, 1ML IVPush SCH (09:30)
[2019-12-11] MEDS ORDERED: ONDANSETRON 4 MG TABLET PO PRN (09:30)
[2019-12-11] MEDS ORDERED: TRANEXAMIC ACID 1,500 MG in SODIUM CHLORIDE 0.9% 100 ML IVPB ONE (09:30)
[2019-12-11] MEDS ORDERED: SENNA/DOCUSATE TABLET PO PRN (09:30)
[2019-12-11] MEDS ORDERED: DIPHENHYDRAMINE 25 MG CAPSULE PO PRN (09:30)
[2019-12-11] MEDS ORDERED: OXYcodone IR 5MG TABLET PO PRN ×2 (09:30)
[2019-12-11] MEDS ORDERED: MEPERIDINE/PF 25MG/0.5ML IVPush STA (09:39)
[2019-12-11] MEDS ORDERED: TAMSULOSIN 0.4 MG CAP.ER.24H PO ONE (10:00)
[2019-12-11] MEDS ORDERED: FLUTICASONE NASAL SPRAY 16GM NAS SCH (10:00)
[2019-12-11] MEDS ORDERED: MEPERIDINE/PF 25MG/0.5ML IVPush PRN (10:30)
[2019-12-11 11:36] VITALS: BP 128/79
[2019-12-11 12:06] VITALS: BP 123/81
[2019-12-11] MEDS ORDERED: CEFAZOLIN PMX 1GM/50ML 50 ML IVPB SCH (16:00)
[2019-12-11] MEDS ORDERED: ASPIRIN 81 MG TABLET EC PO SCH (21:00)
[2019-12-11] MEDS ORDERED: DOXYCYCLINE 100MG TABLET PO SCH (21:00)
[2019-12-12] MEDS ORDERED: CHOLECALCIFEROL 1,000 UNIT TABLET PO SCH (09:00)
[2019-12-12] MEDS ORDERED: MULTIVITAMIN 1 TABLET PO SCH (09:00)
[2019-12-12] MEDS ORDERED: OMEGA-3/FISH OIL CAPSULE PO SCH (09:00)
[2019-12-12] MEDS ORDERED: PREGABALIN 75 MG CAPSULE PO SCH (09:00)
== END 2019-12-11 16:50 | disposition home or self-care (01) ==
LOC: OUT 05:42 → EDSTATUS 07:30 → ORIP 09:11 → 4NE 11:05
PROVIDERS: ADMIT Orthopaedic Surgery; ATTEND Orthopaedic Surgery
DX: Z03.818 Encounter for observation for suspected exposure to other biological agents ruled out (principal); M16.12 Unilateral primary osteoarthritis, left hip; Z68.23 Body mass index [BMI] 23.0-23.9, adult; D64.9 Anemia, unspecified; Z85.46 Personal history of malignant neoplasm of prostate; Z90.79 Acquired absence of other genital organ(s)
CPT/HCPCS: 27130; 36415; 72170; 80053; 81003; 85025; 86850; 86900; 87081; 93005; 97161; C1713; C1776; G0378; J0171; J0330; J0690; J1885; J2175; J2370; J2405; J2704; J2795; J3010; J3370; U0001; J2250